=== PATIENT | male | born 1950 | race Caucasian/White ===

== ENCOUNTER 2019-09-07 09:04 | Emergency (ER) | payer OTHER, MEDICARE ==
[~2019-09-07] VITALS: Ht 185.4 cm; Wt 74.4 kg
== END 2019-09-07 09:57 | disposition home or self-care (01) ==
LOC: ED 09:04
DX: S61.213A Laceration without foreign body of left middle finger without damage to nail, initial encounter (principal); W26.0XXA Contact with knife, initial encounter
CPT/HCPCS: 99282

== ENCOUNTER 2022-11-02 07:45 | Day surgery (SDC) | payer OTHER ==
[2022-11-01 13:17] VITALS: BP 128/77
[~2022-11-02] VITALS: Ht 185.4 cm; Wt 79.9 kg
[~2022-11-02 07:45] MED LIST: MULTI VITAMIN1 EACH PO; PRILOSEC OTC20 MG PO
[2022-11-02 08:08] VITALS: BP 128/67
--- NOTE | 2022-11-02 11:05 | NUR ---
11/02/22 Efe5 Parisa Mendoza SN [id number] PATIENT ARRIVES TO PACU UNRESPONSIVE TO PAINFUL STIMULI. RESP EVEN AND UNLABORED. O2 MASK AT 6 LITERS.
[2022-11-02] MEDS ORDERED: TYLENOL EXTRA500 MG PO (11:15)
[2022-11-02] MEDS ORDERED: PERCOCET 7.5-31 EACH PO (11:15)
[2022-11-02] MEDS ORDERED: MOTRIN IB200 MG PO (11:15)
--- NOTE | 2022-11-02 11:30 | NUR ---
PT ARRIVES TO UNIT VIA STRETCHER FROM PACU. REPORT RECIEVED FROM SABINA RN AND CAMMY RN. PT IS A&O X4. SABINA RN EDUCATES PT ABOUT POSSIBLE BBB AND PROLONGED QT INTERVAL AND ADVISES FUTURE APPT W/PCP, PT AND STATE VERBAL UNDERSTANDING. PT VSS. DRESSING IS C/D/I, NO SIGNS OF BLEEDING AT THIS TIME. PT REPORTS NO PAIN, NAUSEA, DIZZINESS, SOB, OR N/T AT THIS TIME. PT TOLERATING ORAL FLUIDS W/OUT DIFFICULTY. SCD'S IN PLACE, CALL LIGHT WITHIN REACH, APPLESAUCE & CRACKERS PROVIDED, NO FURTHER NEEDS AT THIS TIME. AT BEDSIDE.
[2022-11-02 11:37] VITALS: BP 141/57
--- NOTE | 2022-11-02 12:30 | NUR ---
IN PT ROOM FOR ASSESSMENT AND VS. PT REPORTS PAIN 3 OR 4/10 AND STATES THIS IS TOLERABLE, STATES NO NEED FOR PRN MEDS AT THIS TIME. PT IS A&O X4, AT BEDSIDE. DRESSING IS C/D/I, NO SIGNS OF BLEEDING. VSS. PT IS UP AT BEDSIDE FOR AMBULATION AND URINE VOID. PT TO RESTROOM W/STANDBY ASSIST BY THIS RN. PT REPORTS NO DIZZINESS OR INSTABILITY W/AMBULATION. PT VOIDS 100 ML URINE. DRESSING REMAINS C/D/I, NO SIGNS OF BLEEDING POST AMBULATION. PT NOW GETTING DRESSED W/'S ASSISTANCE.
[2022-11-02 12:35] VITALS: BP 147/97
--- NOTE | 2022-11-02 13:00 | NUR ---
THIS RN IN ROOM FOR DISCHARGE EDUCATION. PT AND STATE VERBAL UNDERSTANDING, ALL QUESTIONS ARE ANSWERED. IV SITE DC'ED, CATH TIP INTACT, GAUZE/COBAN IN PLACE. PT ESCORTED OFF OF UNIT VIA WC AND INTO PASSENGER SIDE OF 'S VEHICLE. PT AND REPORT NO FURTHER NEEDS OR QUESTIONS. ALL BELONGINGS IN PT POSSESSION AT THIS TIME.
--- NOTE | 2022-11-02 19:14 | OR ---
[facility] [address], [place] [address] Signed DATE OF OPERATION: 11/02/2022 SURGEON: Jimenez Muhammad MD PREOPERATIVE DIAGNOSIS: Right inguinal hernia (work related). POSTOPERATIVE DIAGNOSIS: Right direct inguinal hernia. PROCEDURE: Repair of right direct inguinal hernia with implantation of Prolene mesh (underlay technique). ANESTHESIA: General, LMA; Elly Storm CRNA and local 10 mL of 0.25% Marcaine with epinephrine. INDICATIONS: This 72-year-old white man works at [employer]. He was lifting a heavy gunsafe into a customers truck when he had the onset of severe right groin pain. He was ultimately found to have a reducible right inguinal hernia. 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 Imaging study including ultrasound shows a right hernia containing fat. Given the symptomatic nature of the hernia and so forth, he has been recommended to undergo right inguinal hernia repair. The risks of bleeding, infection, recurrence, and failure to cure his pain, problem, and other unforeseen complications was reviewed in detail. He understands this and wished to proceed. FINDINGS: Through a small right groin incision, hernia repair was undertaken without problem. The hernia was a direct defect. There was no sign of indirect component. A very small ilioinguinal nerve branch was identified medially and a larger ilioinguinal nerve branch more directly over the cord. These were both spared and unencumbered by repair or closure. The cord structure had no indirect hernia sac. DESCRIPTION OF PROCEDURE: The patient was brought to the operating room, given a general LMA type anesthetic. Preoperative antibiotic Ancef was given. Sequential compression device stockings used and heparin subcutaneously administered. Preoperative antibiotic Ancef had been given. Electronically Signed By: JIMENEZ MUHAMMAD MD 11/02/22 1914 PATIENT NAME: ROSA PENA OPERATIVE REPORT DATE OF : 48 REPORT #: [id number] PHYSICIAN: JIMENEZ MUHAMMAD MD PCP: MICHELLE GONZALEZ REPORT IS CONFIDENTIAL AND NOT TO BE RELEASED WITHOUT AUTHORIZATION [facility] [address], [place] [address] Signed The lower abdomen was clipped and prepared with a chlorhexidine solution and draped sterilely. A small incision was made cephalad to the pubic tubercle on the right side. Dissection was carried through the subcutaneous tissue with electrocautery dissection. External oblique was identified and incised along its fibers revealing the underlying cord. Hemostats were applied to the external oblique fascia after dissecting two separate ilioinguinal nerve branches and reflected around the external oblique. The cord was mobilized from the floor with blunt electrocautery dissection. Inspection of the cord showed no sign of indirect sac or hernia component. There was a direct hernia with marked attenuation of the fascia of the transversalis. Using blunt electrocautery dissection, the thin fascia of the transversalis was incised and the properitoneal fat bluntly free. A segment of Prolene mesh was cut to an elliptical configuration and secured in an underlay technique with interrupted 2-0 Prolene sutures. A defect was cut in the graft to accommodate the cord and the tails of the graft were extended laterally, but not fully encircling the cord itself. A 0.25% Marcaine with epinephrine injected locally. Irrigation was undertaken. The cord was replaced into the canal as were the two ilioinguinal nerves. The external oblique was reapproximated with running 2-0 Vicryl and careful away, so as to avoid incorporation of the cord or nerves. The Madhavi layer was reapproximated with interrupted 3-0 Vicryl and skin closed with running subcuticular 3-0 Vicryl, Steri-Strips were applied as well as an Acticoat dressing. The patient tolerated the procedure well. Blood loss was minimal. Complications, none. MD NIKKI Rodriguez/MODL /[id number] cc: [facility] Electronically Signed By: JIMENEZ MUHAMMAD MD 11/02/221913 PATIENT NAME: ROSA PENA OPERATIVE REPORT DATE OF : 48 REPORT #: [id number] PHYSICIAN: JIMENEZ MUHAMMAD MD PCP: MICHELLE GONZALEZ REPORT IS CONFIDENTIAL AND NOT TO BE RELEASED WITHOUT AUTHORIZATION [facility] [address] [facility] [place] [address] Signed Copies: MICHELLE GONZALEZ ~ Electronically Signed By: JIMENEZ MUHAMMAD MD 11/02/22 1914 PATIENT NAME: ROSA PENA OPERATIVE REPORT DATE OF : 48 REPORT #: [id number] PHYSICIAN: JIMENEZ MUHAMMAD MD PCP: MICHELLE GONZALEZ REPORT IS CONFIDENTIAL AND NOT TO BE RELEASED WITHOUT AUTHORIZATION
== END 2022-11-02 13:05 | disposition home or self-care (01) ==
LOC: DS 07:45
PROVIDERS: ATTEND Surgery
DX: K40.90 Unilateral inguinal hernia, without obstruction or gangrene, not specified as recurrent (principal); K21.9 Gastro-esophageal reflux disease without esophagitis; Z79.899 Other long term (current) drug therapy
CPT/HCPCS: C1781; J0131; J0690; J1644; J1885; J2405; J2704; J7121